=== PATIENT | female | born 1945 | race Caucasian/White ===

== ENCOUNTER 2018-02-10 10:18 | Outpatient (CLI) | payer MEDICARE, BC ==
--- NOTE | 2018-02-10 11:54 | MMO ---
BILATERAL DIGITAL SCREENING MAMMOGRAMS WITH CAD: COMPARISON: 01/13/2017 and 12/18/2014 FINDINGS: The breast tissue is heterogeneously dense, which may reduce the sensitivity of mammography. Benign calcifications are again seen. No suspicious masses or calcifications are identified. IMPRESSION: BI-RADS Category 2: Benign findings. Return to annual mammographic screening. POS: [facility]ITOR
== END 2018-02-10 10:19 | disposition home or self-care (01) ==
LOC: SCSMAMMO 10:18
PROVIDERS: ATTEND Family Medicine
DX: Z12.31 Encounter for screening mammogram for malignant neoplasm of breast (principal)
CPT/HCPCS: 77067